=== PATIENT | female | born 1965 | race Caucasian/White ===

== ENCOUNTER 2016-10-15 16:00 | Emergency (ER) | payer BC ==
[~2016-10-15] VITALS: Ht 175.3 cm; Wt 101.6 kg
[~2016-10-15 16:00] MED LIST: ATEN50TA8 PO; ATV5; CPR500 PO; DRV100 PO; METR-163 PO; PANT40TA PO
[2016-10-15 16:10] VITALS: Ht 175.3 cm; Wt 101.6 kg
[2016-10-15] MEDS ORDERED: GLUCAGON FOR INJ 1 MG VIAL IV STA (16:26)
[2016-10-15 16:53] LABS: BASO % 1.1 %; BASO ABS # 0.09 K/uL (0-0.2); COMPLETE YES; EOS % 1.3 %; HEMATOCRIT 42.3 % (37-47); IG% 0.2 %; LYMPH % 19.6 %; LYMPH ABS # 1.62 K/uL (1.2-3.4); MEAN CELL VOLUME 87.8 fL (80-100); MEAN CORPUSCULAR HEMOGLOBIN 31.7 pg (25-34); MEAN CORPUSCULAR HGB CONC 36.2 g/dl (32-36); MEAN PLATELET VOLUME 11.7 fL (7.4-10.4); MONO % 8.4 %; NEUT % 69.4 %; PLATELET COUNT 284 K/uL (130-400); RED BLOOD COUNT 4.82 M/uL (4.2-5.4); WHITE BLOOD COUNT 8.26 K/uL (4.8-10.8)
[2016-10-15] MEDS ORDERED: CITA40TA12 PO (17:06)
--- NOTE | 2016-10-15 17:06 | DIAGNOSTIC IMAGING REPORT ---
SINGLE VIEW CHEST CLINICAL HISTORY: Foreign body sensation in the throat. FINDINGS: An AP, portable, upright chest radiograph is obtained. No prior studies are available for comparison at the time of dictation. The examination is degraded by portable technique, large body habitus, and patient rotation. The cardiomediastinal silhouette is unremarkable. The lungs and pleural spaces are clear. There is no evidence of pneumothorax or pneumomediastinum. The bony thorax is grossly intact. IMPRESSION: No active disease in the chest. Electronically signed by: Lucian Womack M.D. 10/15/2016 5:05 PM Dictated Date/Time: 10/15/2016 5:04 PM
[2016-10-15 17:10] LABS: BUN/CREATININE RATIO 16.6 (10-20); CALCIUM 9.3 mg/dl (8.5-10.1); CREATININE 0.93 mg/dl (0.60-1.20); POTASSIUM 3.5 mmol/L (3.5-5.1)
[2016-10-15] MEDS ORDERED: LORAZEPAM 2 MG/ML 1 ML VIAL IV STA ×2 (17:25→19:18)
--- NOTE | 2016-10-15 17:38 | EMERGENCY ROOM VISIT NOTE ---
History Report prepared by Ryan: Kylah Guevara Under the Supervision of: Dr. Arnold Gutierrez M.D. First contact with patient: 16:22 Chief Complaint: FOOD BOLUS Stated Complaint: SOMETHING STUCK IN THROAT Nursing Triage Summary: Pt reports since 1300 has a piece of pork stuck in throat. Vomited several times of phlegm. History of Present Illness The patient is a 51 year old female who presents to the Emergency Room with complaints of a piece of food stuck in her throat. She reports she was eating lunch when she swallowed a piece of pork without adequately chewing it. She has tried to swallow it and bring it back up, but it persists to be stuck in her throat. She has been vomiting clear liquid since the pork became stuck in her throat. She can swallow her saliva, but it comes back up. She has some pain in her throat and in the middle of her upper abdomen. She states that she had a similar occurrence 1 month ago with chicken. She denies any SOB, fever, chest pain or other symptoms. She has no history of heart disease or GI problems. She has never had an EGD. Source of History: patient Onset: earlier today Position: throat Quality: other (food stuck) Timing: other (persistent) Modifying Factors (Relieving): other (none) Associated Symptoms: No SOB, No chest pain, No fevers Review of Systems See HPI for pertinent positives & negatives. A total of 10 systems reviewed and were otherwise negative. Past Medical & Surgical Medical Problems: (1) Hypertension Family History Pt reports no pertinent family history. Social History Smoking Status: Never Smoker Marital Status: Housing Status: lives with family Occupation Status: employed Current/Historical Medications Scheduled Atenolol (Tenormin), 1 TAB PO DAILY Citalopram Hydrobromide (Celexa), 40 MG PO DAILY Allergies Coded Allergies: No Known Allergies (Unverified , 10/15/16) Physical Exam Vital Signs Date Time Temp Pulse Resp B/P Pulse Ox O2 Delivery O2 Flow Rate FiO2 10/15/16 16:11 95 Room Air 10/15/16 16:10 37.5 67 18 137/88 95 Room Air Physical Exam Constitutional: Vital signs reviewed. Eyes: Pupils are equal round reactive to light. Conjunctiva are noninjected. ENT: Pharynx is clear without erythema or exudate. Mucous membranes are moist. Neck supple without meningeal signs. Respiratory: Clear to auscultation bilaterally. Breath sounds are equal bilaterally. No wheezing or stridor. Cardiovascular: Regular rate and rhythm. No rubs or gallops. GI: Soft, nondistended and nontender. Bowel sounds are present. Musculoskeletal: No peripheral edema. No lower extremity tenderness. Integumentary: No cyanosis. Neurological: The patient is awake and alert. No focal deficits. Psychiatric: Normal affect. Medical Decision & Procedures ER Provider Diagnostic Interpretation: X-ray results as stated below per interpretation by me and the radiologist: SINGLE VIEW CHEST CLINICAL HISTORY: Foreign body sensation in the throat. FINDINGS: An AP, portable, upright chest radiograph is obtained. No prior studies are available for comparison at the time of dictation. The examination is degraded by portable technique, large body habitus, and patient rotation. The cardiomediastinal silhouette is unremarkable. The lungs and pleural spaces are clear. There is no evidence of pneumothorax or pneumomediastinum. The bony thorax is grossly intact. IMPRESSION: No active disease in the chest. Electronically signed by: Lucian Womack M.D. 10/15/2016 5:05 PM Dictated Date/Time: 10/15/2016 5:04 PM Laboratory Results 10/15/16 16:36 Red Blood Count 4.82, Mean Corpuscular Volume 87.8, Mean Corpuscular Hemoglobin 31.7, Mean Corpuscular Hemoglobin Concent 36.2, Mean Platelet Volume 11.7, Neutrophils (%) (Auto) 69.4, Lymphocytes (%) (Auto) 19.6, Monocytes (%) (Auto) 8.4, Eosinophils (%) (Auto) 1.3, Basophils (%) (Auto) 1.1, Neutrophils # (Auto) 5.73, Lymphocytes # (Auto) 1.62, Monocytes # (Auto) 0.69, Eosinophils # (Auto) 0.11, Basophils # (Auto) 0.09 10/15/16 16:36 Test 10/15/16 16:36 White Blood Count 8.26 K/uL (4.8-10.8) Red Blood Count 4.82 M/uL (4.2-5.4) Hemoglobin 15.3 g/dL (12.0-16.0) Hematocrit 42.3 % (37-47) Mean Corpuscular Volume 87.8 fL (80-100) Mean Corpuscular Hemoglobin 31.7 pg (25-34) Mean Corpuscular Hemoglobin Concent 36.2 g/dl (32-36) Platelet Count 284 K/uL (130-400) Mean Platelet Volume 11.7 fL (7.4-10.4) Neutrophils (%) (Auto) 69.4 % Lymphocytes (%) (Auto) 19.6 % Monocytes (%) (Auto) 8.4 % Eosinophils (%) (Auto) 1.3 % Basophils (%) (Auto) 1.1 % Neutrophils # (Auto) 5.73 K/uL (1.4-6.5) Lymphocytes # (Auto) 1.62 K/uL (1.2-3.4) Monocytes # (Auto) 0.69 K/uL (0.11-0.59) Eosinophils # (Auto) 0.11 K/uL (0-0.5) Basophils # (Auto) 0.09 K/uL (0-0.2) RDW Standard Deviation 43.7 fL (36.4-46.3) RDW Coefficient of Variation 13.5 % (11.5-14.5) Immature Granulocyte % (Auto) 0.2 % Immature Granulocyte # (Auto) 0.02 K/uL (0.00-0.02) Anion Gap 7.0 mmol/L (3-11) Est Creatinine Clear Calc Drug Dose 88.8 ml/min Estimated GFR () 81.3 Estimated GFR (Non- 70.2 BUN/Creatinine Ratio 16.6 (10-20) Calcium Level 9.3 mg/dl (8.5-10.1) Laboratory results as reviewed by me. Medications Administered Medications (Trade) Dose Ordered Sig/Vianey Route Start Time Stop Time Status Last Admin Dose Admin Glucagon (Glucagon Inj) 1 mg NOW STAT IV 10/15/16 16:26 10/15/16 16:27 DC 10/15/16 16:26 1 MG ED Course 1623: The patient was evaluated in room A12B. A complete history and physical exam was performed. 1626: Glucagon 1 mg IV. 1705: I reevaluated the patient. She is still spitting out her saliva. 1721: I discussed the patient's case with Dr. Reyes, [facility] - gastroenterology. He will take the patient to the OR for endoscopy. It might take a couple hours. 1725: I reevaluated the patient. I informed her of Dr. Reyes's plan. She verbalized understanding and agreement. Medical Decision This is a 51-year-old female who presents with an esophageal food bolus impaction. I did perform a limited focused review of portions of the patient's old chart on the electronic medical record. The patient has had no recent pertinent visits to this hospital. I did evaluate the patient as noted above. The patient is presenting with an esophageal food bolus impaction. She is unable to swallow her own saliva. IV access was established. I did treat her with glucagon 1 mg IV. I did order and personally review the patient's chest x-ray as described above. I did order and review the patient's blood work as noted in the electronic medical record. She has no resolution of her symptoms. I did discuss the case with Dr. Reyes of GI. He will take her to the OR for endoscopy. He did state that there may be a delay of several hours. The patient was given Ativan 0.5 mg IV and informed that the delay. The patient was signed out to Dr. Mcnulty. Consults Time Called: 1708 Consulting Physician: [facility] Returned Call: [phone] I discussed the patient's case with him. He will take the patient to the OR for endoscopy. It might take a couple hours. Impression Primary Impression: Esophageal obstruction due to food impaction Scribe Attestation The scribe's documentation has been prepared under my direct and personally reviewed by me in its entirety. I confirm that the note above accurately reflects all work, treatment, procedures, and medical decision making performed by me. Departure Information Dispostion Still a Patient Referrals Matthew Johns M.D. (PCP) Patient Instructions My [facility]
[2016-10-15] MEDS ORDERED: SODIUM CHLORIDE 0.9% 1000ML 1,000 ML IV STA (19:18)
--- NOTE | 2016-10-15 19:58 | Gastrointestinal Consultation ---
Gastrointestinal Consultation Date of Consultation: Oct 15, 2016 Consulting Physician: Dr. Vinay Patel Reason for Consultation: Food impaction History of Present Illness Patient is a 51 year old female who presents to the Emergency Room with complaints of a piece of food stuck in her throat. She reports eating lunch at 1 :30 when she swallowed a piece of pork that became impacted. She has tried to swallow the bolus and bring it back up with self emesis, but it could not be dislodged. She cannot swallow her saliva. She has some pain in her throat and in the middle of her upper abdomen. She states that she had a similar occurrence 1 month ago with chicken but required no medical attention as it passed spontaneously. She denies any SOB, fever, chest pain or other symptoms. She has no history of heart disease or pulmonary problems. Past Medical/Surgical History Medical Problems: (1) Esophageal obstruction due to food impaction Status: Acute Past Medical History: Anxiety Past Surgical History: No abdominal or chest surgeries Colonoscopy 2013 Family History No history of esophageal or gastric cancer Social History Smoking Status: Never Smoker Drug Use: none Marital Status: Housing Status: lives with family Occupation Status: employed Allergies Coded Allergies: No Known Allergies (Unverified , 10/15/16) Current Medications Home Meds and Scripts Medications Dose Route/Sig Max Daily Dose Days Date Category Celexa (Citalopram Hydrobromide) 40 Mg Tab 40 Mg PO DAILY 10/15/16 Reported Tenormin (Atenolol) 50 Mg Tab 1 Tab PO DAILY 03/18/06 Reported Review of Systems Constitutional: No chills, No fatigue, No fever Eyes: No problem reported, No worsening of vision ENT: + problem reported, No unusual epistaxis Respiratory: No cough, No dyspnea at rest, No wheezing Cardiac: No PND, No chest pain, No palpitations Abdomen: No constipation, No jaundice, No vomiting Musculoskeletal: No joint pain, No muscle pain Psych: No anxiety, No substance abuse Heme: No abnormal bleeding/bruising, No clotting problems Endo: + problem reported, + see HPI, No fatigue Skin: No jaundice, No rash Physical Exam Date Time Temp Pulse Resp B/P Pulse Ox O2 Delivery O2 Flow Rate FiO2 10/15/16 17:47 60 18 117/61 95 Room Air 10/15/16 16:11 95 Room Air 10/15/16 16:10 37.5 67 18 137/88 95 Room Air General Appearance: no apparent distress Eyes: PERRL Neck: supple, no adenopathy, no JVD Respiratory/Chest: lungs clear Cardiovascular: regular rate, rhythm, no murmur Abdomen: non tender, soft Extremities: non-tender, no pedal edema Neurologic/Psych: alert, oriented x 3 Skin: no jaundice Laboratory Results Last 24 Hours Test 10/15/16 16:36 White Blood Count 8.26 K/uL Red Blood Count 4.82 M/uL Hemoglobin 15.3 g/dL Hematocrit 42.3 % Mean Corpuscular Volume 87.8 fL Mean Corpuscular Hemoglobin 31.7 pg Mean Corpuscular Hemoglobin Concent 36.2 g/dl Platelet Count 284 K/uL Mean Platelet Volume 11.7 fL Neutrophils (%) (Auto) 69.4 % Lymphocytes (%) (Auto) 19.6 % Monocytes (%) (Auto) 8.4 % Eosinophils (%) (Auto) 1.3 % Basophils (%) (Auto) 1.1 % Neutrophils # (Auto) 5.73 K/uL Lymphocytes # (Auto) 1.62 K/uL Monocytes # (Auto) 0.69 K/uL Eosinophils # (Auto) 0.11 K/uL Basophils # (Auto) 0.09 K/uL RDW Standard Deviation 43.7 fL RDW Coefficient of Variation 13.5 % Immature Granulocyte % (Auto) 0.2 % Immature Granulocyte # (Auto) 0.02 K/uL Sodium Level 142 mmol/L Potassium Level 3.5 mmol/L Chloride Level 107 mmol/L Carbon Dioxide Level 28 mmol/L Anion Gap 7.0 mmol/L Blood Urea Nitrogen 15 mg/dl Creatinine 0.93 mg/dl Est Creatinine Clear Calc Drug Dose 88.8 ml/min Estimated GFR () 81.3 Estimated GFR (Non- 70.2 BUN/Creatinine Ratio 16.6 Random Glucose 113 mg/dl Calcium Level 9.3 mg/dl Impression Patient is a 51 year old female Plan Patient with a food impaction referred for endoscopic clearing. We have discussed the risks to include bleeding, infection, perforation, aspiration, pain, and infection. Plan EGD today Outpatient use of a PPI (Omeprazole 20 mg per day)
--- NOTE | 2016-10-15 20:00 | Discharge Instructions ---
Endoscopy Patient Instructions Date / Procedure(s) Performed Oct 15, 2016. EGD Allergy Information Coded Allergies: No Known Allergies (Unverified , 10/15/16) Discharge Date / Findings Oct 15, 2016. Food bolus spontaneously passed Hiatal hernia Inflammation in the esophagus several small ulcers in the small intestine Medication Instructions Reported Home Medications Medications Dose Route/Sig Max Daily Dose Days Date Category Celexa (Citalopram Hydrobromide) 40 Mg Tab 40 Mg PO DAILY 10/15/16 Reported Tenormin (Atenolol) 50 Mg Tab 1 Tab PO DAILY 03/18/06 Reported Provider Instructions Activity Restrictions - No exercising or heavy lifting for 24 hours. - Do not drink alcohol the day of the procedure. - Do not drive a car or operate machinery until the day after the procedure. - Do not make any important decisions or sign important papers in 24 hours after the procedure. Following Day: - Return to full activity which may include returning to work/school. Diet Liquid diet today Soft diet for 3 days Avoid bread and meats until after your follow-up upper endoscopy Treatment For Common After Affects For mild abdominal pain, bloating, or excessive gas: - Rest - Eat lightly - Lie on right side Follow-Up Information Omeprazole 20 mg per day (placed to your pharmacy) Repeat upper endoscopy in 2 to 4 weeks for esophageal dilation (stretching) Anesthesia Information What You Should Know You have had a procedure that required some medicine to reduce anxiety and discomfort. This treatment is called moderate sedation. After receiving the treatment, you may be sleepy, but you will be able to breathe on your own. The effects of the treatment may last for several hours. Follow these instructions along with Activity/Diet recommendations noted above: * Do NOT do anything where dizziness or clumsiness would be dangerous. * Rest quietly at home today, then you can be up and about tomorrow. * Have a responsible person stay with you the rest of today. * You may have had an I.V. today. If so, you may take the dressing off later today. Recommendations Call your doctor if: * Trouble breathing * Continuous vomiting for more than 24 hours * Temperature above 101 degrees * Severe abdominal pain or bloating * Pain not relieved by pain medicine ordered * There is increased drainage or redness from any incision * A large amount of rectal bleeding greater than 2-3 tablespoons. (If you had a polyp/s removed or have hemorrhoids, a small amount of blood - from the rectum is to be expected.) * You have any unanswered questions or concerns. IN THE EVENT OF A SERIOUS EMERGENCY, GO TO THE NEAREST EMERGENCY ROOM Your discharge instructions were prepared by provider Kym Reyes. Patient Instructions Signature Page Cyndi Mcdaniels Patient (or Guardian) Signature/Date: I have read and understand the instructions given to me by my caregivers. Caregiver/RN/Doctor Signature/Date: The above-named patient and/or guardian has received patient instructions on this date. + Original Patient Signature Page (only) stays with chart. Please make copy for patient.
[2016-10-15 20:05] VITALS: O2SAT 99
[2016-10-15] MEDS ORDERED: FENTANYL CITRATE INJ 50 MCG/1 ML 2 ML VIAL ONE (20:51)
--- NOTE | 2016-10-15 21:01 | GI REPORT ---
Procedure Date: 10/15/2016 8:27 PM Procedure: Upper GI endoscopy Indications: Foreign body in the esophagus Medicines: General Anesthesia Complications: No immediate complications. Estimated blood loss: Minimal. Estimated Blood Loss: Estimated blood loss was minimal. Procedure: Pre-Anesthesia Assessment: - Prior to the procedure, a History and Physical was performed, and patient medications, allergies and sensitivities were reviewed. The patient's tolerance of previous anesthesia was reviewed. - The risks and benefits of the procedure and the sedation options and risks were discussed with the patient. All questions were answered and informed consent was obtained. - Patient identification and proposed procedure were verified prior to the procedure by the physician, the nurse and the anesthesiologist. The procedure was verified in the procedure room. - Pre-procedure physical examination revealed no contraindications to sedation. - ASA Grade Assessment: II - A patient with mild systemic disease. - After reviewing the risks and benefits, the patient was deemed in satisfactory condition to undergo the procedure. - The anesthesia plan was to use general anesthesia. - Immediately prior to administration of medications, the patient was re-assessed for adequacy to receive sedatives. - The heart rate, respiratory rate, oxygen saturations, blood pressure, adequacy of pulmonary ventilation, and response to care were monitored throughout the procedure. - The physical status of the patient was re-assessed after the procedure. After obtaining informed consent, the endoscope was passed under direct vision. Throughout the procedure, the patient's blood pressure, pulse, and oxygen saturations were monitored continuously. The scope was introduced through the mouth, and advanced to the second part of duodenum. The upper GI endoscopy was accomplished without difficulty. The patient tolerated the procedure well. Findings: LA Grade B (one or more mucosal breaks greater than 5 mm, not extending between the tops of two mucosal folds) esophagitis with no bleeding was found in the lower third of the esophagus. Mucosal changes including ringed esophagus were found in the middle third of the esophagus. A medium-sized hiatus hernia was found. The hiatal narrowing was 36 cm from the incisors. The Z-line was 30 cm from the incisors. The gastric fundus, gastric body, incisura and gastric antrum were normal. Multiple diffuse erosions without bleeding were found in the entire duodenum. Impression: - LA Grade B reflux esophagitis. - Esophageal mucosal changes suggestive of eosinophilic esophagitis. - Medium-sized hiatus hernia. - Normal gastric fundus, gastric body, incisura and antrum. - Erosive duodenopathy with without bleeding. - No specimens collected. Recommendation: - Discharge patient to home (via cart). - Full liquid diet for 3 days. - Use Prilosec (omeprazole) 20 mg PO daily. - Repeat the upper endoscopy in 2-4 weeks. Kym Reyes D.O. Kym Reyes, DO 10/15/2016 9:00:41 PM This report has been signed electronically. Note Initiated On: 10/15/2016 8:27 PM I attest to the content of the Intraoperative Record and orders documented therein, exceptions below
[2016-10-15] MEDS ORDERED: PROPOFOL IV EMULSION 10 MG/ML 20 ML VIAL IV ONE (21:05)
[2016-10-15] MEDS ORDERED: LIDOCAINE 2% 20 MG/ML 5ML SYR ONE (21:05)
[2016-10-15] MEDS ORDERED: ONDANSETRON INJ 2 MG/ML 2 ML VIAL IV PRN ×2 (21:15→21:30)
[2016-10-15] MEDS ORDERED: ATROPINE SULFATE 0.1 MG/ML 5ML SYR IV PRN (21:30)
[2016-10-15] MEDS ORDERED: EpHEDrine SULFATE INJ 50 MG/ML AMP IV PRN (21:30)
[2016-10-15] MEDS ORDERED: FENTANYL CITRATE INJ 50 MCG/1 ML 2 ML VIAL IV PRN (21:30)
--- NOTE | 2016-10-15 21:45 | Anesthesiology Progress Note ---
Anesthesia Post Op Note Date & Time Oct 15, 2016 at 21:44 Vital Signs Pain Intensity: 0 Vital Signs Past 12 Hours Date Time Temp Pulse Resp B/P Pulse Ox O2 Delivery O2 Flow Rate FiO2 10/15/16 21:35 36.5 74 18 109/52 97 Room Air 10/15/16 21:25 71 18 109/62 100 Mask 10 10/15/16 21:15 86 18 104/79 100 Mask 10 10/15/16 21:06 36.5 93 18 131/82 98 Mask 10 10/15/16 20:05 64 18 123/67 99 Room Air 10/15/16 17:47 60 18 117/61 95 Room Air 10/15/16 16:11 95 Room Air 10/15/16 16:10 37.5 67 18 137/88 95 Room Air Notes Mental Status: alert / awake / arousable, participated in evaluation Pt Amnestic to Procedure: Yes Nausea / Vomiting: adequately controlled Pain: adequately controlled Airway Patency, RR, SpO2: stable & adequate BP & HR: stable & adequate Hydration State: stable & adequate Anesthetic Complications: no major complications apparent Patient had a non productive cough in pacu. There was no evidence of aspiration before or after case. Her lungs were clear and oxygen saturations were acceptable on room air. She can go home without reservation regarding her cough.
[2016-10-15 21:47] VITALS: BP 117/80; PULSE 71; TEMP 36.5; O2SAT 97
[2016-10-15 22:10] VITALS: BP 117/80; TEMP 36.5; O2SAT 97
--- NOTE | 2016-10-16 00:37 | EMERGENCY ROOM VISIT NOTE ---
ED Visit Note First contact with patient: 19:15 Pleasant 51 yr old female arrived initially seen and managed by Dr Gutierrez for foreign body in esophagus. Was eating pork when logged in esophagus. No improvement initially and still unable to swallow. CXR and labs unremarkable. Given further Ativan with patient feeling that mild movement of FB but still with inability to swallow. Monitored in ED over several hours while awaiting endo and did well. Went to Endoscopy for further evaluation/treatment.
== END 2016-10-15 22:14 | disposition home or self-care (01) ==
LOC: C.EDB 16:01 → C.EDA 22:14
DX: K22.2 Esophageal obstruction (principal); K21.0 Gastro-esophageal reflux disease with esophagitis; K44.9 Diaphragmatic hernia without obstruction or gangrene; I10 Essential (primary) hypertension; Z79.899 Other long term (current) drug therapy